=== PATIENT | female | born 1940 | race Caucasian/White ===

== ENCOUNTER 2018-07-28 09:57 | Outpatient (RCR) | payer MEDICARE, MEDICAID, SELFPAY ==
[2018-07-28 10:08] VITALS: BP 127/68; PULSE 107; RESP 16; TEMP 36; BMI 26.5
--- NOTE | 2018-07-28 11:47 | WC ---
PT RELUCTANT TO SIGN CONSENTS. DX W/ DEMENTIA. CALLED [facility] AND RECEIVED VERBAL CONSENT FOR TREATMENT. DR DIMAS, FINANCIAL COMPLIANCE OFFICER, AND PT ALL AWARE, WELL CAREGIVER WHO ACCOMPANIED.
--- NOTE | 2018-07-28 13:32 | PCM.WC.HP ---
(1) Sacral decubitus ulcer, stage III Status: Chronic Current Visit: Yes Code(s): L89.153 - Pressure ulcer of sacral region, stage 3 (2) Ulcer of left lower extremity with fat layer exposed Status: Chronic Current Visit: Yes Code(s): L97.922 - Non-pressure chronic ulcer of unspecified part of left lower leg with fat layer exposed Comment: Left lateral and posterior with significant eschar. (3) Ulcer of right lower extremity with fat layer exposed Status: Chronic Current Visit: Yes Code(s): L97.912 - Non-pressure chronic ulcer of unspecified part of right lower leg with fat layer exposed (4) Dementia Status: Acute Current Visit: Yes Code(s): F03.90 - Unspecified dementia without behavioral disturbance (5) Chronic anticoagulation Status: Acute Current Visit: Yes Code(s): Z79.01 - [facility] (current) use of anticoagulants History of Present Illness Date of Service: 07/28/18 Chief Complaint: Multiple lower extremity and sacral ulcers. History of Wound: Ms. Yao is a 78-year-old unable to give a clear history due to her coexistent dementia who was [facility] in from [facility] due to multiple bilateral lower extremity ulcers and sacral decubitus ulcer. No known onset/precipitating factors known at this time. Per prison personnel they have been applying Santyl to the wounds without any significant improvement. He states that she is at a baseline. Currently in ciprofloxacin for urinary tract infection. They also denied chills or fever. Patient is a DNR CCA and is currently on palliative care. Past Medical History Past Medical History: Chronic Problems Sacral decubitus ulcer, stage III (Chronic) Ulcer of left lower extremity with fat layer exposed (Chronic) Left lateral and posterior with significant eschar. Ulcer of right lower extremity with fat layer exposed (Chronic) Allergies/Adverse Reactions: Allergies aspirin [ASA] Allergy (Verified 07/28/18 10:50) Unknown Penicillins [PCN] Allergy (Verified 07/28/18 10:50) Unknown Sulfa (Sulfonamide Antibiotics) Allergy (Verified 07/28/18 10:50) Unknown VITAMIN K Allergy (Uncoded 07/28/18 10:50) Unknown Home Medications: Ambulatory Orders Medication Instructions Recorded Acetaminophen [Tylenol] 650 mg PO Q4H PRN 07/28/18 Albuterol Sulfate 1.25 mg IH 4X/DAY PRN 07/28/18 Amino Acids/Protein Hydrolys 30 ml PO TID 07/28/18 [Prosource No Carb Liquid Pkt] Atorvastatin Calcium [Lipitor] 20 mg PO QHS 07/28/18 Bumetanide 1 mg PO BID 07/28/18 Ciprofloxacin [Cipro] 250 mg PO BID 07/28/18 Dexamethasone 1.5 mg PO DAILY 07/28/18 Digoxin [Digox] 125 mcg PO DAILY 07/28/18 Diltiazem CD [Cardizem CD] 180 mg PO DAILY 07/28/18 Donepezil HCl [Aricept] 5 mg PO QHS 07/28/18 Gabapentin [Neurontin] 300 mg PO TID 07/28/18 Guaifenesin [Robitussin] 10 ml PO Q6H PRN PRN 07/28/18 Insulin Glargine,Hum.rec.anlog 15 unit SQ QHS 07/28/18 [Lantus] Insulin Lispro [Humalog] See Protocol SQ TID 07/28/18 Lactulose 10 gm PO BID 07/28/18 Magnesium Hydroxide [Milk Of 30 ml PO DAILY PRN PRN 07/28/18 Magnesia] Menthol [Biofreeze] 1 applic TP Q12H PRN 07/28/18 Omeprazole 40 mg PO DAILY 07/28/18 Polyethylene Glycol 3350 [Miralax] 17 gm PO DAILY 07/28/18 Potassium Chloride [Klor-Con M20] 40 meq PO BID 07/28/18 Propylene Glycol/Peg 400 [Systane 10 ml OP BID 07/28/18 Gel Eye Drops] Warfarin [Coumadin ([facility])] 3 mg PO DAILY 07/28/18 traMADol [Ultram (G)] 50 mg PO Q6H PRN PRN 07/28/18 Smoking Status: Never smoker Review of Systems Constitutional: Denies: Anorexia, Malaise Eyes: Denies: Pain HEENT: Denies: Difficulty Swallowing Cardiovascular: Denies: Chest Pain, Chest Tightness Respiratory: Reports: Cough. Denies: Hemoptysis Gastrointestinal: Denies: Abdominal Pain, Hematemesis, Vomiting Skin: Denies: Jaundice - Physical Exam Vital Signs Temp Pulse Resp BP 96.8 F L 107 H 16 127/68 H 07/28/18 10:08 07/28/18 10:08 07/28/18 10:08 07/28/18 10:08 General: Alert, Cooperative, No apparent distress HEENT: Atraumatic Oral: Moist Mucosa Neck: Supple Lungs: Wheezes Cardiovascular: Regular rate Abdomen: Non Tender, Obese Extremities: No cyanosis, Edema Skin: Ulcer/ Wound Wound Measurements and Assessment WC - Nurse 1 - General Ulcer Measurement Start: 07/28/18 10:07 Freq: Status: Active Protocol: Activity Type Activity Date Activity User E-Sign Co-Sign Detail Recorded Client Recorded Date Recorded By Document 07/28/18 10:08 [facility] [id number] 07/28/18 10:36 [facility] 07/28/18 10:08 Wound Center Nurse 1 [Ulcer Assessment] #4- SACRUM -Combined with other wound No -Current Size (cm) - Length 2.5 -Current Size (cm) - Width 2.4 -Current Size (cm) - Depth 0.3 -Total Square Cm 6.00 -Date of Last Picture (Recall this 07/28/18 field) -Photo Taken Yes -Epithelialization None Present -Tunneling No -Undermining/Tunneling No -Circular Undermining No -Exudate Amt Medium (34-66%) -Exudate Type Serosanguineous -Wound Margin Distinct, Outline Attached -Granulation Amt Medium (34-66%) -Granulation Quality Red -Slough/Fibrin Yes -Necrosis Amt Medium (34-66%) -Necrotic Tissue Type Adherent Slough -Structure Exposed N/A -Texture (Paris-wound Skin Appearance) Scarring -Moisture ([place]-wound Skin Appearance Assessed ) -Color ([place]-wound Skin Appearance) Erythema -Temperature ([place]-wound Skin No Abnormality Appearance) (Pt Warm) -Tenderness on Palpation ([place]-wound No Skin Appearance) -Ulcer Cleansing Wound Cleanser -Foul Odor after Cleansing No -Anesthetic Used 4% Lidocaine Solution #3- RT POST LE CLUSTER -Combined with other wound No -Current Size (cm) - Length 8.1 -Current Size (cm) - Width 3.9 -Current Size (cm) - Depth 0.2 -Total Square Cm 31.59 -Date of Last Picture (Recall this 07/28/18 field) -Photo Taken Yes -Epithelialization None Present -Tunneling No -Undermining/Tunneling No -Circular Undermining No -Exudate Amt Medium (34-66%) -Exudate Type Serosanguineous -Wound Margin Distinct, Outline Attached -Granulation Amt Small (1-33%) -Granulation Quality Red -Slough/Fibrin Yes -Necrosis Amt Large (67-100%) -Necrotic Tissue Type Eschar -Structure Exposed N/A -Texture ([place]-wound Skin Appearance) Scarring -Moisture ([place]-wound Skin Appearance Dry/Scaly ) -Color ([place]-wound Skin Appearance) Erythema -Temperature ([place]-wound Skin No Abnormality Appearance) (Pt Warm) -Tenderness on Palpation ([place]-wound Yes Skin Appearance) -Ulcer Cleansing Wound Cleanser -Foul Odor after Cleansing No -Anesthetic Used 5% Lidocaine Gel #2- LT POST LE -Combined with other wound No -Current Size (cm) - Length 8.9 -Current Size (cm) - Width 3.8 -Current Size (cm) - Depth 0.1 -Total Square Cm 33.82 -Date of Last Picture (Recall this 07/28/18 field) -Photo Taken Yes -Epithelialization None Present -Tunneling No -Undermining/Tunneling No -Circular Undermining No -Exudate Amt Medium (34-66%) -Exudate Type Serosanguineous -Wound Margin Distinct, Outline Attached -Granulation Amt Small (1-33%) -Granulation Quality Red -Slough/Fibrin Yes -Necrosis Amt Large (67-100%) -Necrotic Tissue Type Eschar -Structure Exposed N/A -Texture ([place]-wound Skin Appearance) Scarring -Moisture ([place]-wound Skin Appearance Dry/Scaly ) -Color ([place]-wound Skin Appearance) Erythema -Temperature ([place]-wound Skin No Abnormality Appearance) (Pt Warm) -Tenderness on Palpation ([place]-wound Yes Skin Appearance) -Ulcer Cleansing Wound Cleanser -Foul Odor after Cleansing No -Anesthetic Used 5% Lidocaine Gel #1- LT LAT LE -Combined with other wound No -Current Size (cm) - Length 4.2 -Current Size (cm) - Width 1.8 -Current Size (cm) - Depth 0.1 -Total Square Cm 7.56 -Date of Last Picture (Recall this 07/28/18 field) -Photo Taken Yes -Epithelialization None Present -Tunneling No -Undermining/Tunneling No -Circular Undermining No -Exudate Amt Medium (34-66%) -Exudate Type Serous -Wound Margin Distinct, Outline Attached -Granulation Amt Large (67-100%) -Granulation Quality Red -Slough/Fibrin Yes -Necrosis Amt Small (1-33%) -Necrotic Tissue Type Adherent Slough -Structure Exposed None/Limited to Skin Breakdown -Texture ([place]-wound Skin Appearance) Scarring -Moisture ([place]-wound Skin Appearance Dry/Scaly ) -Color ([place]-wound Skin Appearance) Erythema -Temperature ([place]-wound Skin No Abnormality Appearance) (Pt Warm) -Tenderness on Palpation ([place]-wound Yes Skin Appearance) -Ulcer Cleansing Wound Cleanser -Foul Odor after Cleansing No -Anesthetic Used 5% Lidocaine Gel [Edema Assessment] -Lower Limb Edema Present Yes -Right Calf (cm) 42 -Right Ankle (cm) 29 -Left Calf (cm) 43 -Left Ankle (cm) 30 WC - Nurse 2 - General Ulcer CM Notes Start: 07/28/18 10:07 Freq: Status: Active Protocol: Activity Type Activity Date Activity User E-Sign Co-Sign Detail Recorded Client Recorded Date Recorded By Document 07/28/18 11:05 MW [id number] 07/28/18 11:35 MW 07/28/18 11:05 Wound Center Nurse 2 [Procedure/Treatment] #4- SACRUM -Time 11:20 -Correct Patient Yes -Correct Side, Site, Position Yes -Correct Procedure Yes -Procedure Performed Yes -Type of Procedure Debridement -Clinical Debridement Subcutaneous -Post Debridement Size (cm) - Length 2.6 -Post Debridement Size (cm) - Width 4.0 -Post Debridement Size (cm) - Depth 0.3 -Total Square Cm 10.40 -Wound/Ulcer Outcome Not Healed -Ulcer Cleansing Rinsed/ Irrigated with Saline -Foul Odor after Cleansing No -Bioengineered Tissue No -Bleeding Controlled with Pressure -Treatment Response Procedure Tolerated Well #3- RT POST LE CLUSTER -Time 11:07 -Correct Patient Yes -Correct Side, Site, Position Yes -Correct Procedure Yes -Procedure Performed Yes -Type of Procedure Debridement -Clinical Debridement Subcutaneous -Post Debridement Size (cm) - Length 8.0 -Post Debridement Size (cm) - Width 5.0 -Post Debridement Size (cm) - Depth 0.3 -Total Square Cm 40.00 -Wound/Ulcer Outcome Not Healed -Ulcer Cleansing Rinsed/ Irrigated with Saline -Foul Odor after Cleansing No -Bioengineered Tissue No -Bleeding Controlled with Pressure -Treatment Response Procedure Tolerated Well #2- LT POST LE -Time 11:06 -Correct Patient Yes -Correct Side, Site, Position Yes -Correct Procedure Yes -Procedure Performed Yes -Type of Procedure Debridement -Clinical Debridement Subcutaneous -Post Debridement Size (cm) - Length 9.0 -Post Debridement Size (cm) - Width 4.0 -Post Debridement Size (cm) - Depth 0.6 -Total Square Cm 36.00 -Wound/Ulcer Outcome Not Healed -Ulcer Cleansing Rinsed/ Irrigated with Saline -Foul Odor after Cleansing No -Bioengineered Tissue No -Bleeding Controlled with Pressure -Treatment Response Procedure Tolerated Well #1- LT LAT LE -Time 11:06 -Correct Patient Yes -Correct Side, Site, Position Yes -Correct Procedure Yes -Procedure Performed Yes -Type of Procedure Debridement -Clinical Debridement Subcutaneous -Post Debridement Size (cm) - Length 4.0 -Post Debridement Size (cm) - Width 2.5 -Post Debridement Size (cm) - Depth 0.1 -Total Square Cm 10.00 -Wound/Ulcer Outcome Not Healed -Ulcer Cleansing Rinsed/ Irrigated with Saline -Foul Odor after Cleansing No -Bioengineered Tissue No -Bleeding Controlled with Pressure -Treatment Response Procedure Tolerated Well [See Physician Procedure note for Specifics] Pain Scale: 0-10 Numeric [Pain] -Is Patient Pain Free? Yes Musculoskeletal: No Muscle Wasting Psych/Mental Status: Normal Affect Debridement Note Post-Debridement Measurements/Treatment WC - Nurse 2 - General Ulcer CM Notes Start: 07/28/18 10:07 Freq: Status: Active Protocol: Activity Type Activity Date Activity User E-Sign Co-Sign Detail Recorded Client Recorded Date Recorded By Document 07/28/18 11:05 MW [id number] 07/28/18 11:35 MW 07/28/18 11:05 Wound Center Nurse 2 #4- SACRUM -Time 11:20 -Correct Patient Yes -Correct Side, Site, Position Yes -Correct Procedure Yes -Procedure Performed Yes -Type of Procedure Debridement -Clinical Debridement Subcutaneous -Post Debridement Size (cm) - Length 2.6 -Post Debridement Size (cm) - Width 4.0 -Post Debridement Size (cm) - Depth 0.3 -Total Square Cm 10.40 -Wound/Ulcer Outcome Not Healed -Ulcer Cleansing Rinsed/ Irrigated with Saline -Foul Odor after Cleansing No -Bioengineered Tissue No -Bleeding Controlled with Pressure -Treatment Response Procedure Tolerated Well #3- RT POST LE CLUSTER -Time 11:07 -Correct Patient Yes -Correct Side, Site, Position Yes -Correct Procedure Yes -Procedure Performed Yes -Type of Procedure Debridement -Clinical Debridement Subcutaneous -Post Debridement Size (cm) - Length 8.0 -Post Debridement Size (cm) - Width 5.0 -Post Debridement Size (cm) - Depth 0.3 -Total Square Cm 40.00 -Wound/Ulcer Outcome Not Healed -Ulcer Cleansing Rinsed/ Irrigated with Saline -Foul Odor after Cleansing No -Bioengineered Tissue No -Bleeding Controlled with Pressure -Treatment Response Procedure Tolerated Well #2- LT POST LE -Time 11:06 -Correct Patient Yes -Correct Side, Site, Position Yes -Correct Procedure Yes -Procedure Performed Yes -Type of Procedure Debridement -Clinical Debridement Subcutaneous -Post Debridement Size (cm) - Length 9.0 -Post Debridement Size (cm) - Width 4.0 -Post Debridement Size (cm) - Depth 0.6 -Total Square Cm 36.00 -Wound/Ulcer Outcome Not Healed -Ulcer Cleansing Rinsed/ Irrigated with Saline -Foul Odor after Cleansing No -Bioengineered Tissue No -Bleeding Controlled with Pressure -Treatment Response Procedure Tolerated Well #1- LT LAT LE -Time 11:06 -Correct Patient Yes -Correct Side, Site, Position Yes -Correct Procedure Yes -Procedure Performed Yes -Type of Procedure Debridement -Clinical Debridement Subcutaneous -Post Debridement Size (cm) - Length 4.0 -Post Debridement Size (cm) - Width 2.5 -Post Debridement Size (cm) - Depth 0.1 -Total Square Cm 10.00 -Wound/Ulcer Outcome Not Healed -Ulcer Cleansing Rinsed/ Irrigated with Saline -Foul Odor after Cleansing No -Bioengineered Tissue No -Bleeding Controlled with Pressure -Treatment Response Procedure Tolerated Well Pain Scale: 0-10 Numeric Is Patient Pain Free? Yes Wound debrided: Left lateral lower extremity. Wound Grade/Stage: Stage II Type of Debridement: Excisional debridement Anesthesia Used: 4% Lidocaine Solution Depth: Down to and including healthy tissue, in the subcutaneous layer Percentage of wound debrided: 100 Instrument Used: 7mm curette Tissue Removed: Slough and devitalized tissue Severity: Fat Layer Exposed Amount of bleeding with debridement: Mild Bleeding Controlled with: Pressure Patient tolerated procedure well - Additional Wound Wound debrided: Posterior left lower extremity Wound Grade/Stage: Stage III Type of Debridement: Excisional debridement Anesthesia Used: 4% Lidocaine Solution, 5% Lidocaine Gel Depth: Down to and including healthy tissue, in the subcutaneous layer Percentage of wound debrided: 100 Instrument Used: 7mm curette, #15 blade, Forceps Tissue Removed: Eschar, slough and devitalized tissue Severity: Fat Layer Exposed Amount of bleeding with debridement: Mild Bleeding Controlled with: Pressure Patient tolerated procedure: Patient tolerated procedure well - Additional Wound Wound debrided: Sacral ulcer Wound Grade/Stage: Stage III Type of Debridement: Excisional debridement Anesthesia Used: 4% Lidocaine Solution Depth: Down to and including healthy tissue, in the subcutaneous layer Percentage of wound debrided: 100 Instrument Used: 3mm curette Tissue Removed: Slough and devitalized tissue Severity: Fat Layer Exposed Amount of bleeding with debridement: Mild Bleeding Controlled with: Pressure Patient tolerated procedure: Patient tolerated procedure well - Additional Wound Wound debrided: Right lower extremity ulcer Wound Grade/Stage: Stage III Type of Debridement: Excisional debridement Anesthesia Used: 4% Lidocaine Solution Depth: Down to and including healthy tissue, in the subcutaneous layer Percentage of wound debrided: 100 Instrument Used: 7mm curette, #15 blade, Forceps Tissue Removed: Eschar, slough and devitalized tissue Severity: Fat Layer Exposed Amount of bleeding with debridement: Mild Bleeding Controlled with: Pressure Patient tolerated procedure: Patient tolerated procedure well Assessment/Plan Active Problems Sacral decubitus ulcer, stage III (Chronic) Ulcer of left lower extremity with fat layer exposed (Chronic) Left lateral and posterior with significant eschar. Ulcer of right lower extremity with fat layer exposed (Chronic) Dementia (Acute) Chronic anticoagulation (Acute) Assessment: Nonhealing bilateral lower extremity ulcers with slightly exposed and significant eschar formation. Nonhealing sacral stage III decubitus ulcer. Dementia. Bilateral lower extremity edema. DNR CCA. Palliative care. Plan: Patient presents with significant bilateral lower extremity ulcers. Both ulcers with significant eschar formation and purulent discharge noted on debridement. Cultures taken. Due to her palliative care status, wound care will also be palliative. Apply Santyl to posterior left lower extremity and right lower extremity ulcers. Fibracol with Adaptic over top to lateral left lower extremity ulcer and sacral decubitus ulcer. SurePress for edema management. Elevate lower extremities when seated in bed. Increased protein intake and supplements recommended. All her questions were answered and she was advised to call with any further questions or concerns. Follow-up in 3 weeks. This note was generated with [employer] software. It may contain incorrect words, spelling, and punctuation that were not noted in checking the note before signing.
--- NOTE | 2018-07-28 13:36 | HP.PCM_ITS ---
(1) Sacral decubitus ulcer, stage III Status: Chronic Current Visit: Yes Code(s): L89.153 - Pressure ulcer of sacral region, stage 3 (2) Ulcer of left lower extremity with fat layer exposed Status: Chronic Current Visit: Yes Code(s): L97.922 - Non-pressure chronic ulcer of unspecified part of left lower leg with fat layer exposed Comment: Left lateral and posterior with significant eschar. (3) Ulcer of right lower extremity with fat layer exposed Status: Chronic Current Visit: Yes Code(s): L97.912 - Non-pressure chronic ulcer of unspecified part of right lower leg with fat layer exposed (4) Dementia Status: Acute Current Visit: Yes Code(s): F03.90 - Unspecified dementia without behavioral disturbance (5) Chronic anticoagulation Status: Acute Current Visit: Yes Code(s): Z79.01 - [facility] (current) use of anticoagulants History of Present Illness Date of Service: 07/28/18 Chief Complaint: Multiple lower extremity and sacral ulcers. History of Wound: Ms. Yao is a 78-year-old unable to give a clear history due to her coexistent dementia who was brought in from her half-way due to multiple bilateral lower extremity ulcers and sacral decubitus ulcer. No known onset/precipitating factors known at this time. Per half-way personnel they have been applying Santyl to the wounds without any significant improvement. He states that she is at a baseline. Currently in ciprofloxacin for urinary tract infection. They also denied chills or fever. Patient is a DNR CCA and is currently on palliative care. Past Medical History Past Medical History: Chronic Problems Sacral decubitus ulcer, stage III (Chronic) Ulcer of left lower extremity with fat layer exposed (Chronic) Left lateral and posterior with significant eschar. Ulcer of right lower extremity with fat layer exposed (Chronic) Allergies/Adverse Reactions: Allergies aspirin [ASA] Allergy (Verified 07/28/18 10:50) Unknown Penicillins [PCN] Allergy (Verified 07/28/18 10:50) Unknown Sulfa (Sulfonamide Antibiotics) Allergy (Verified 07/28/18 10:50) Unknown VITAMIN K Allergy (Uncoded 07/28/18 10:50) Unknown Home Medications: Ambulatory Orders Medication Instructions Recorded Acetaminophen [Tylenol] 650 mg PO Q4H PRN 07/28/18 Albuterol Sulfate 1.25 mg IH 4X/DAY PRN 07/28/18 Amino Acids/Protein Hydrolys 30 ml PO TID 07/28/18 [Prosource No Carb Liquid Pkt] Atorvastatin Calcium [Lipitor] 20 mg PO QHS 07/28/18 Bumetanide 1 mg PO BID 07/28/18 Ciprofloxacin [Cipro] 250 mg PO BID 07/28/18 Dexamethasone 1.5 mg PO DAILY 07/28/18 Digoxin [Digox] 125 mcg PO DAILY 07/28/18 Diltiazem CD [Cardizem CD] 180 mg PO DAILY 07/28/18 Donepezil HCl [Aricept] 5 mg PO QHS 07/28/18 Gabapentin [Neurontin] 300 mg PO TID 07/28/18 Guaifenesin [Robitussin] 10 ml PO Q6H PRN PRN 07/28/18 Insulin Glargine,Hum.rec.anlog 15 unit SQ QHS 07/28/18 [Lantus] Insulin Lispro [Humalog] See Protocol SQ TID 07/28/18 Lactulose 10 gm PO BID 07/28/18 Magnesium Hydroxide [Milk Of 30 ml PO DAILY PRN PRN 07/28/18 Magnesia] Menthol [Biofreeze] 1 applic TP Q12H PRN 07/28/18 Omeprazole 40 mg PO DAILY 07/28/18 Polyethylene Glycol 3350 [Miralax] 17 gm PO DAILY 07/28/18 Potassium Chloride [Klor-Con M20] 40 meq PO BID 07/28/18 Propylene Glycol/Peg 400 [Systane 10 ml OP BID 07/28/18 Gel Eye Drops] Warfarin [Coumadin ([facility])] 3 mg PO DAILY 07/28/18 traMADol [Ultram (G)] 50 mg PO Q6H PRN PRN 07/28/18 Smoking Status: Never smoker Review of Systems Constitutional: Denies: Anorexia, Malaise Eyes: Denies: Pain HEENT: Denies: Difficulty Swallowing Cardiovascular: Denies: Chest Pain, Chest Tightness Respiratory: Reports: Cough. Denies: Hemoptysis Gastrointestinal: Denies: Abdominal Pain, Hematemesis, Vomiting Skin: Denies: Jaundice - Physical Exam Vital Signs Temp Pulse Resp BP 96.8 F L 107 H 16 127/68 H 07/28/18 10:08 07/28/18 10:08 07/28/18 10:08 07/28/18 10:08 General: Alert, Cooperative, No apparent distress HEENT: Atraumatic Oral: Moist Mucosa Neck: Supple Lungs: Wheezes Cardiovascular: Regular rate Abdomen: Non Tender, Obese Extremities: No cyanosis, Edema Skin: Ulcer/ Wound Wound Measurements and Assessment WC - Nurse 1 - General Ulcer Measurement Start: 07/28/18 10:07 Freq: Status: Active Protocol: Activity Type Activity Date Activity User E-Sign Co-Sign Detail Recorded Client Recorded Date Recorded By Document 07/28/18 10:08 [facility] [id number] 07/28/18 10:36 [facility] 07/28/18 10:08 Wound Center Nurse 1 [Ulcer Assessment] #4- SACRUM -Combined with other wound No -Current Size (cm) - Length 2.5 -Current Size (cm) - Width 2.4 -Current Size (cm) - Depth 0.3 -Total Square Cm 6.00 -Date of Last Picture (Recall this 07/28/18 field) -Photo Taken Yes -Epithelialization None Present -Tunneling No -Undermining/Tunneling No -Circular Undermining No -Exudate Amt Medium (34-66%) -Exudate Type Serosanguineous -Wound Margin Distinct, Outline Attached -Granulation Amt Medium (34-66%) -Granulation Quality Red -Slough/Fibrin Yes -Necrosis Amt Medium (34-66%) -Necrotic Tissue Type Adherent Slough -Structure Exposed N/A -Texture (Paris-wound Skin Appearance) Scarring -Moisture (Pairs-wound Skin Appearance Assessed ) -Color ([place]-wound Skin Appearance) Erythema -Temperature ([place]-wound Skin No Abnormality Appearance) (Pt Warm) -Tenderness on Palpation ([place]-wound No Skin Appearance) -Ulcer Cleansing Wound Cleanser -Foul Odor after Cleansing No -Anesthetic Used 4% Lidocaine Solution #3- RT POST LE CLUSTER -Combined with other wound No -Current Size (cm) - Length 8.1 -Current Size (cm) - Width 3.9 -Current Size (cm) - Depth 0.2 -Total Square Cm 31.59 -Date of Last Picture (Recall this 07/28/18 field) -Photo Taken Yes -Epithelialization None Present -Tunneling No -Undermining/Tunneling No -Circular Undermining No -Exudate Amt Medium (34-66%) -Exudate Type Serosanguineous -Wound Margin Distinct, Outline Attached -Granulation Amt Small (1-33%) -Granulation Quality Red -Slough/Fibrin Yes -Necrosis Amt Large (67-100%) -Necrotic Tissue Type Eschar -Structure Exposed N/A -Texture ([place]-wound Skin Appearance) Scarring -Moisture ([place]-wound Skin Appearance Dry/Scaly ) -Color ([place]-wound Skin Appearance) Erythema -Temperature ([place]-wound Skin No Abnormality Appearance) (Pt Warm) -Tenderness on Palpation ([place]-wound Yes Skin Appearance) -Ulcer Cleansing Wound Cleanser -Foul Odor after Cleansing No -Anesthetic Used 5% Lidocaine Gel #2- LT POST LE -Combined with other wound No -Current Size (cm) - Length 8.9 -Current Size (cm) - Width 3.8 -Current Size (cm) - Depth 0.1 -Total Square Cm 33.82 -Date of Last Picture (Recall this 07/28/18 field) -Photo Taken Yes -Epithelialization None Present -Tunneling No -Undermining/Tunneling No -Circular Undermining No -Exudate Amt Medium (34-66%) -Exudate Type Serosanguineous -Wound Margin Distinct, Outline Attached -Granulation Amt Small (1-33%) -Granulation Quality Red -Slough/Fibrin Yes -Necrosis Amt Large (67-100%) -Necrotic Tissue Type Eschar -Structure Exposed N/A -Texture ([place]-wound Skin Appearance) Scarring -Moisture ([place]-wound Skin Appearance Dry/Scaly ) -Color ([place]-wound Skin Appearance) Erythema -Temperature ([place]-wound Skin No Abnormality Appearance) (Pt Warm) -Tenderness on Palpation ([place]-wound Yes Skin Appearance) -Ulcer Cleansing Wound Cleanser -Foul Odor after Cleansing No -Anesthetic Used 5% Lidocaine Gel #1- LT LAT LE -Combined with other wound No -Current Size (cm) - Length 4.2 -Current Size (cm) - Width 1.8 -Current Size (cm) - Depth 0.1 -Total Square Cm 7.56 -Date of Last Picture (Recall this 07/28/18 field) -Photo Taken Yes -Epithelialization None Present -Tunneling No -Undermining/Tunneling No -Circular Undermining No -Exudate Amt Medium (34-66%) -Exudate Type Serous -Wound Margin Distinct, Outline Attached -Granulation Amt Large (67-100%) -Granulation Quality Red -Slough/Fibrin Yes -Necrosis Amt Small (1-33%) -Necrotic Tissue Type Adherent Slough -Structure Exposed None/Limited to Skin Breakdown -Texture ([place]-wound Skin Appearance) Scarring -Moisture ([place]-wound Skin Appearance Dry/Scaly ) -Color ([place]-wound Skin Appearance) Erythema -Temperature ([place]-wound Skin No Abnormality Appearance) (Pt Warm) -Tenderness on Palpation ([place]-wound Yes Skin Appearance) -Ulcer Cleansing Wound Cleanser -Foul Odor after Cleansing No -Anesthetic Used 5% Lidocaine Gel [Edema Assessment] -Lower Limb Edema Present Yes -Right Calf (cm) 42 -Right Ankle (cm) 29 -Left Calf (cm) 43 -Left Ankle (cm) 30 WC - Nurse 2 - General Ulcer CM Notes Start: 07/28/18 10:07 Freq: Status: Active Protocol: Activity Type Activity Date Activity User E-Sign Co-Sign Detail Recorded Client Recorded Date Recorded By Document 07/28/18 11:05 MW [id number] 07/28/18 11:35 MW 07/28/18 11:05 Wound Center Nurse 2 [Procedure/Treatment] #4- SACRUM -Time 11:20 -Correct Patient Yes -Correct Side, Site, Position Yes -Correct Procedure Yes -Procedure Performed Yes -Type of Procedure Debridement -Clinical Debridement Subcutaneous -Post Debridement Size (cm) - Length 2.6 -Post Debridement Size (cm) - Width 4.0 -Post Debridement Size (cm) - Depth 0.3 -Total Square Cm 10.40 -Wound/Ulcer Outcome Not Healed -Ulcer Cleansing Rinsed/ Irrigated with Saline -Foul Odor after Cleansing No -Bioengineered Tissue No -Bleeding Controlled with Pressure -Treatment Response Procedure Tolerated Well #3- RT POST LE CLUSTER -Time 11:07 -Correct Patient Yes -Correct Side, Site, Position Yes -Correct Procedure Yes -Procedure Performed Yes -Type of Procedure Debridement -Clinical Debridement Subcutaneous -Post Debridement Size (cm) - Length 8.0 -Post Debridement Size (cm) - Width 5.0 -Post Debridement Size (cm) - Depth 0.3 -Total Square Cm 40.00 -Wound/Ulcer Outcome Not Healed -Ulcer Cleansing Rinsed/ Irrigated with Saline -Foul Odor after Cleansing No -Bioengineered Tissue No -Bleeding Controlled with Pressure -Treatment Response Procedure Tolerated Well #2- LT POST LE -Time 11:06 -Correct Patient Yes -Correct Side, Site, Position Yes -Correct Procedure Yes -Procedure Performed Yes -Type of Procedure Debridement -Clinical Debridement Subcutaneous -Post Debridement Size (cm) - Length 9.0 -Post Debridement Size (cm) - Width 4.0 -Post Debridement Size (cm) - Depth 0.6 -Total Square Cm 36.00 -Wound/Ulcer Outcome Not Healed -Ulcer Cleansing Rinsed/ Irrigated with Saline -Foul Odor after Cleansing No -Bioengineered Tissue No -Bleeding Controlled with Pressure -Treatment Response Procedure Tolerated Well #1- LT LAT LE -Time 11:06 -Correct Patient Yes -Correct Side, Site, Position Yes -Correct Procedure Yes -Procedure Performed Yes -Type of Procedure Debridement -Clinical Debridement Subcutaneous -Post Debridement Size (cm) - Length 4.0 -Post Debridement Size (cm) - Width 2.5 -Post Debridement Size (cm) - Depth 0.1 -Total Square Cm 10.00 -Wound/Ulcer Outcome Not Healed -Ulcer Cleansing Rinsed/ Irrigated with Saline -Foul Odor after Cleansing No -Bioengineered Tissue No -Bleeding Controlled with Pressure -Treatment Response Procedure Tolerated Well [See Physician Procedure note for Specifics] Pain Scale: 0-10 Numeric [Pain] -Is Patient Pain Free? Yes Musculoskeletal: No Muscle Wasting Psych/Mental Status: Normal Affect Debridement Note Post-Debridement Measurements/Treatment WC - Nurse 2 - General Ulcer CM Notes Start: 07/28/18 10:07 Freq: Status: Active Protocol: Activity Type Activity Date Activity User E-Sign Co-Sign Detail Recorded Client Recorded Date Recorded By Document 07/28/18 11:05 MW [id number] 07/28/18 11:35 MW 07/28/18 11:05 Wound Center Nurse 2 #4- SACRUM -Time 11:20 -Correct Patient Yes -Correct Side, Site, Position Yes -Correct Procedure Yes -Procedure Performed Yes -Type of Procedure Debridement -Clinical Debridement Subcutaneous -Post Debridement Size (cm) - Length 2.6 -Post Debridement Size (cm) - Width 4.0 -Post Debridement Size (cm) - Depth 0.3 -Total Square Cm 10.40 -Wound/Ulcer Outcome Not Healed -Ulcer Cleansing Rinsed/ Irrigated with Saline -Foul Odor after Cleansing No -Bioengineered Tissue No -Bleeding Controlled with Pressure -Treatment Response Procedure Tolerated Well #3- RT POST LE CLUSTER -Time 11:07 -Correct Patient Yes -Correct Side, Site, Position Yes -Correct Procedure Yes -Procedure Performed Yes -Type of Procedure Debridement -Clinical Debridement Subcutaneous -Post Debridement Size (cm) - Length 8.0 -Post Debridement Size (cm) - Width 5.0 -Post Debridement Size (cm) - Depth 0.3 -Total Square Cm 40.00 -Wound/Ulcer Outcome Not Healed -Ulcer Cleansing Rinsed/ Irrigated with Saline -Foul Odor after Cleansing No -Bioengineered Tissue No -Bleeding Controlled with Pressure -Treatment Response Procedure Tolerated Well #2- LT POST LE -Time 11:06 -Correct Patient Yes -Correct Side, Site, Position Yes -Correct Procedure Yes -Procedure Performed Yes -Type of Procedure Debridement -Clinical Debridement Subcutaneous -Post Debridement Size (cm) - Length 9.0 -Post Debridement Size (cm) - Width 4.0 -Post Debridement Size (cm) - Depth 0.6 -Total Square Cm 36.00 -Wound/Ulcer Outcome Not Healed -Ulcer Cleansing Rinsed/ Irrigated with Saline -Foul Odor after Cleansing No -Bioengineered Tissue No -Bleeding Controlled with Pressure -Treatment Response Procedure Tolerated Well #1- LT LAT LE -Time 11:06 -Correct Patient Yes -Correct Side, Site, Position Yes -Correct Procedure Yes -Procedure Performed Yes -Type of Procedure Debridement -Clinical Debridement Subcutaneous -Post Debridement Size (cm) - Length 4.0 -Post Debridement Size (cm) - Width 2.5 -Post Debridement Size (cm) - Depth 0.1 -Total Square Cm 10.00 -Wound/Ulcer Outcome Not Healed -Ulcer Cleansing Rinsed/ Irrigated with Saline -Foul Odor after Cleansing No -Bioengineered Tissue No -Bleeding Controlled with Pressure -Treatment Response Procedure Tolerated Well Pain Scale: 0-10 Numeric Is Patient Pain Free? Yes Wound debrided: Left lateral lower extremity. Wound Grade/Stage: Stage II Type of Debridement: Excisional debridement Anesthesia Used: 4% Lidocaine Solution Depth: Down to and including healthy tissue, in the subcutaneous layer Percentage of wound debrided: 100 Instrument Used: 7mm curette Tissue Removed: Slough and devitalized tissue Severity: Fat Layer Exposed Amount of bleeding with debridement: Mild Bleeding Controlled with: Pressure Patient tolerated procedure well - Additional Wound Wound debrided: Posterior left lower extremity Wound Grade/Stage: Stage III Type of Debridement: Excisional debridement Anesthesia Used: 4% Lidocaine Solution, 5% Lidocaine Gel Depth: Down to and including healthy tissue, in the subcutaneous layer Percentage of wound debrided: 100 Instrument Used: 7mm curette, #15 blade, Forceps Tissue Removed: Eschar, slough and devitalized tissue Severity: Fat Layer Exposed Amount of bleeding with debridement: Mild Bleeding Controlled with: Pressure Patient tolerated procedure: Patient tolerated procedure well - Additional Wound Wound debrided: Sacral ulcer Wound Grade/Stage: Stage III Type of Debridement: Excisional debridement Anesthesia Used: 4% Lidocaine Solution Depth: Down to and including healthy tissue, in the subcutaneous layer Percentage of wound debrided: 100 Instrument Used: 3mm curette Tissue Removed: Slough and devitalized tissue Severity: Fat Layer Exposed Amount of bleeding with debridement: Mild Bleeding Controlled with: Pressure Patient tolerated procedure: Patient tolerated procedure well - Additional Wound Wound debrided: Right lower extremity ulcer Wound Grade/Stage: Stage III Type of Debridement: Excisional debridement Anesthesia Used: 4% Lidocaine Solution Depth: Down to and including healthy tissue, in the subcutaneous layer Percentage of wound debrided: 100 Instrument Used: 7mm curette, #15 blade, Forceps Tissue Removed: Eschar, slough and devitalized tissue Severity: Fat Layer Exposed Amount of bleeding with debridement: Mild Bleeding Controlled with: Pressure Patient tolerated procedure: Patient tolerated procedure well Assessment/Plan Active Problems Sacral decubitus ulcer, stage III (Chronic) Ulcer of left lower extremity with fat layer exposed (Chronic) Left lateral and posterior with significant eschar. Ulcer of right lower extremity with fat layer exposed (Chronic) Dementia (Acute) Chronic anticoagulation (Acute) Assessment: Nonhealing bilateral lower extremity ulcers with slightly exposed and significant eschar formation. Nonhealing sacral stage III decubitus ulcer. Dementia. Bilateral lower extremity edema. DNR CCA. Palliative care. Plan: Patient presents with significant bilateral lower extremity ulcers. Both ulcers with significant eschar formation and purulent discharge noted on debridement. Cultures taken. Due to her palliative care status, wound care will also be palliative. Apply Santyl to posterior left lower extremity and right lower extremity ulcers. Fibracol with Adaptic over top to lateral left lower extremity ulcer and sacral decubitus ulcer. SurePress for edema management. Elevate lower extremities when seated in bed. Increased protein intake and supplements recommended. All her questions were answered and she was advised to call with any further questions or concerns. Follow-up in 3 weeks. This note was generated with [employer] software. It may contain incorrect words, spelling, and punctuation that were not noted in checking the note before signing.
== END 2018-08-08 23:59 ==
LOC: WC 09:57
PROVIDERS: Visit Provider Internal Medicine
DX: L89.153 Pressure ulcer of sacral region, stage 3 (principal); F03.90 Unspecified dementia, unspecified severity, without behavioral disturbance, psychotic disturbance, mood disturbance, and anxiety; Z79.01 Long term (current) use of anticoagulants; L97.822 Non-pressure chronic ulcer of other part of left lower leg with fat layer exposed; L97.812 Non-pressure chronic ulcer of other part of right lower leg with fat layer exposed; R60.0 Localized edema
CPT/HCPCS: 11042; 11045; 87070; 87075; 87077; 87186; 87205; 99203; G0463

== ENCOUNTER 2018-08-18 11:01 | Outpatient (RCR) | payer MEDICARE, MEDICAID, SELFPAY ==
[2018-08-09 01:46] VITALS: BP 127/68; PULSE 107; RESP 16; TEMP 36
[2018-08-18 11:22] VITALS: BP 130/75; PULSE 106; RESP 18; TEMP 36
--- NOTE | 2018-08-18 16:38 | PN.PCM_ITS ---
(1) Skin ulcer of abdominal wall with fat layer exposed Status: Acute Current Visit: Yes Code(s): L98.492 - Non-pressure chronic ulcer of skin of other sites with fat layer exposed (2) Sacral decubitus ulcer, stage III Status: Chronic Current Visit: Yes Code(s): L89.153 - Pressure ulcer of sacral region, stage 3 (3) Ulcer of left lower extremity with fat layer exposed Status: Chronic Current Visit: Yes Code(s): L97.922 - Non-pressure chronic ulcer of unspecified part of left lower leg with fat layer exposed Comment: Left lateral and posterior with significant eschar. (4) Ulcer of right lower extremity with fat layer exposed Status: Chronic Current Visit: Yes Code(s): L97.912 - Non-pressure chronic ulcer of unspecified part of right lower leg with fat layer exposed Type of Wound Chief Complaint: Multiple lower extremity and sacral ulcers. History of Wound: Ms. Yao is a 78-year-old unable to give a clear history due to her coexistent dementia who [facility] due to multiple bilateral lower extremity ulcers and sacral decubitus ulcer. No known onset/precipitating factors known at this time. Per penitentiary personnel they have been applying Santyl to the wounds without any significant improvement. He states that she is at a baseline. Currently in ciprofloxacin for urinary tract infection. They also denied chills or fever. Patient is a DNR CCA and is currently on palliative care. Progress of Wound: Ms. Yao presents today for follow-up and is noted to have significant worsening of her ulcers and a new abdominal ulcer. She was started on IV ceftriaxone and has completed based on culture and sensitivity. She is here with her nursing facility staff and they report fecal incontinence which may explain the worsening sacral decubitus ulcer. They states that they have been applying Santyl to the lower extremity ulcers as directed. She otherwise is pretty much at her baseline. - Physical Exam Vital Signs Temp Pulse Resp BP 96.8 F L 106 H 18 130/75 H 08/18/18 11:22 08/18/18 11:22 08/18/18 11:22 08/18/18 11:22 General: Alert, Cooperative, No apparent distress HEENT: Atraumatic Neck: Supple Abdomen: Soft, Obese, Tender Extremities: No cyanosis, Edema Skin: Ulcer/ Wound Wound Measurements and Assessment WC - Nurse 1 - General Ulcer Measurement Start: 08/18/18 11:22 Freq: Status: Active Protocol: Activity Type Activity Date Activity User E-Sign Co-Sign Detail Recorded Client Recorded Date Recorded By Document 08/18/18 11:22 [id number] 08/18/18 11:26 08/18/18 11:22 Wound Center Nurse 1 [Ulcer Assessment] #4- SACRUM -Combined with other wound No -Current Size (cm) - Length 5.2 -Current Size (cm) - Width 4.5 -Current Size (cm) - Depth 0.2 -Total Square Cm 23.40 -Photo Taken No -Epithelialization None Present -Tunneling No -Undermining/Tunneling No -Circular Undermining No -Exudate Amt Large (67-100%) -Exudate Type Serosanguineous -Wound Margin Distinct, Outline Attached -Granulation Amt Small (1-33%) -Granulation Quality Red -Slough/Fibrin Yes -Necrosis Amt None Present (0 %) -Necrotic Tissue Type Adherent Slough -Structure Exposed None/Limited to Skin Breakdown -Texture ([place]-wound Skin Appearance) No Abnormality Assessed -Moisture ([place]-wound Skin Appearance No Abnormality ) Assessed -Color ([place]-wound Skin Appearance) No Abnormality Assessed -Temperature ([place]-wound Skin No Abnormality Appearance) (Pt Warm) -Tenderness on Palpation ([place]-wound Yes Skin Appearance) -Ulcer Cleansing Wound Cleanser -Foul Odor after Cleansing No -Anesthetic Used 5% Lidocaine Gel #3- RT POST LE CLUSTER -Combined with other wound No -Current Size (cm) - Length 10.9 -Current Size (cm) - Width 2.8 -Current Size (cm) - Depth 0.3 -Total Square Cm 30.52 -Photo Taken No -Epithelialization None Present -Tunneling No -Undermining/Tunneling No -Circular Undermining No -Exudate Amt Large (67-100%) -Exudate Type Yellow/Green -Wound Margin Distinct, Outline Attached -Slough/Fibrin Yes -Necrosis Amt None Present (0 %) -Necrotic Tissue Type Adherent Slough -Temperature ([place]-wound Skin No Abnormality Appearance) (Pt Warm) -Tenderness on Palpation ([place]-wound Yes Skin Appearance) -Ulcer Cleansing Rinsed/ Irrigated with Saline -Foul Odor after Cleansing No -Anesthetic Used 4% Lidocaine Solution #2- LT POST LE -Combined with other wound No -Current Size (cm) - Length 10.3 -Current Size (cm) - Width 3.8 -Current Size (cm) - Depth 0.2 -Total Square Cm 39.14 -Photo Taken No -Epithelialization None Present -Tunneling No -Undermining/Tunneling No -Circular Undermining No -Exudate Amt Large (67-100%) -Exudate Type Yellow/Green -Wound Margin Distinct, Outline Attached -Granulation Amt Small (1-33%) -Granulation Quality Pale -Necrosis Amt Small (1-33%) -Necrotic Tissue Type Eschar -Temperature ([place]-wound Skin No Abnormality Appearance) (Pt Warm) -Tenderness on Palpation ([place]-wound Yes Skin Appearance) -Ulcer Cleansing Rinsed/ Irrigated with Saline -Foul Odor after Cleansing No -Anesthetic Used 5% Lidocaine Gel #1- LT LAT LE -Combined with other wound No -Current Size (cm) - Length 3.3 -Current Size (cm) - Width 1.9 -Current Size (cm) - Depth 0.1 -Total Square Cm 6.27 -Photo Taken No -Epithelialization None Present -Tunneling No -Undermining/Tunneling No -Circular Undermining No -Exudate Amt Medium (34-66%) -Exudate Type Serosanguineous -Wound Margin Distinct, Outline Attached -Granulation Amt Medium (34-66%) -Granulation Quality [place] Red -Slough/Fibrin Yes -Necrosis Amt None Present (0 %) -Necrotic Tissue Type Adherent Slough -Temperature ([place]-wound Skin No Abnormality Appearance) (Pt Warm) -Tenderness on Palpation ([place]-wound Yes Skin Appearance) -Ulcer Cleansing Rinsed/ Irrigated with Saline -Foul Odor after Cleansing No -Anesthetic Used 5% Lidocaine Gel [Edema Assessment] -Lower Limb Edema Present NA WC - Nurse 2 - General Ulcer CM Notes Start: 08/18/18 11:22 Freq: Status: Active Protocol: Activity Type Activity Date Activity User E-Sign Co-Sign Detail Recorded Client Recorded Date Recorded By Document 08/18/18 11:43 MW [id number] 08/18/18 12:10 MW 08/18/18 11:43 Wound Center Nurse 2 [Procedure/Treatment] # 5 LEFT LOWER ABD -Time 12:00 -Correct Patient Yes -Correct Side, Site, Position Yes -Correct Procedure Yes -Procedure Performed Yes -Type of Procedure Debridement -Clinical Debridement Subcutaneous -Post Debridement Size (cm) - Length 0.7 -Post Debridement Size (cm) - Width 11.5 -Post Debridement Size (cm) - Depth 0.1 -Total Square Cm 8.05 -Wound/Ulcer Outcome Not Healed -Ulcer Cleansing Rinsed/ Irrigated with Saline -Foul Odor after Cleansing No -Bioengineered Tissue No -Bleeding Controlled with Pressure -Treatment Response Procedure Tolerated Well #4- SACRUM -Time 11:54 -Correct Patient Yes -Correct Side, Site, Position Yes -Correct Procedure Yes -Procedure Performed Yes -Type of Procedure Debridement -Clinical Debridement Subcutaneous -Post Debridement Size (cm) - Length 8.0 -Post Debridement Size (cm) - Width 4.0 -Post Debridement Size (cm) - Depth 0.7 -Total Square Cm 32.00 -Wound/Ulcer Outcome Not Healed -Ulcer Cleansing Rinsed/ Irrigated with Saline -Foul Odor after Cleansing No -Bioengineered Tissue No -Bleeding Controlled with Pressure -Treatment Response Procedure Tolerated Well #3- RT POST LE CLUSTER -Time 11:59 -Correct Patient Yes -Correct Side, Site, Position Yes -Correct Procedure Yes -Procedure Performed Yes -Type of Procedure Debridement -Clinical Debridement Subcutaneous -Post Debridement Size (cm) - Length 9.8 -Post Debridement Size (cm) - Width 3.5 -Post Debridement Size (cm) - Depth 0.3 -Total Square Cm 34.30 -Wound/Ulcer Outcome Not Healed -Ulcer Cleansing Rinsed/ Irrigated with Saline -Foul Odor after Cleansing No -Bioengineered Tissue No -Bleeding Controlled with Pressure -Treatment Response Procedure Tolerated Well #2- LT POST LE -Time 11:48 -Correct Patient Yes -Correct Side, Site, Position Yes -Correct Procedure Yes -Procedure Performed Yes -Type of Procedure Debridement -Clinical Debridement Subcutaneous -Post Debridement Size (cm) - Length 9.5 -Post Debridement Size (cm) - Width 4.5 -Post Debridement Size (cm) - Depth 0.5 -Total Square Cm 42.75 -Wound/Ulcer Outcome Not Healed -Ulcer Cleansing Rinsed/ Irrigated with Saline -Foul Odor after Cleansing No -Bioengineered Tissue No -Bleeding Controlled with Pressure -Treatment Response Procedure Tolerated Well #1- LT LAT LE -Time 11:47 -Correct Patient Yes -Correct Side, Site, Position Yes -Correct Procedure Yes -Procedure Performed Yes -Type of Procedure Debridement -Clinical Debridement Subcutaneous -Post Debridement Size (cm) - Length 5.5 -Post Debridement Size (cm) - Width 2.0 -Post Debridement Size (cm) - Depth 0.1 -Total Square Cm 11.00 -Wound/Ulcer Outcome Not Healed -Ulcer Cleansing Rinsed/ Irrigated with Saline -Foul Odor after Cleansing No -Bioengineered Tissue No -Bleeding Controlled with Pressure -Treatment Response Procedure Tolerated Well [See Physician Procedure note for Specifics] Pain Scale: 0-10 Numeric [Pain] -Is Patient Pain Free? Yes Musculoskeletal: No Muscle Wasting Neurological: Cranial nerves II-XII grossly intact Psych/Mental Status: Normal Affect Debridement Note Post-Debridement Measurements/Treatment WC - Nurse 2 - General Ulcer CM Notes Start: 08/18/18 11:22 Freq: Status: Active Protocol: Activity Type Activity Date Activity User E-Sign Co-Sign Detail Recorded Client Recorded Date Recorded By Document 08/18/18 11:43 MW [id number] 08/18/18 12:10 MW 08/18/18 11:43 Wound Center Nurse 2 # 5 LEFT LOWER ABD -Time 12:00 -Correct Patient Yes -Correct Side, Site, Position Yes -Correct Procedure Yes -Procedure Performed Yes -Type of Procedure Debridement -Clinical Debridement Subcutaneous -Post Debridement Size (cm) - Length 0.7 -Post Debridement Size (cm) - Width 11.5 -Post Debridement Size (cm) - Depth 0.1 -Total Square Cm 8.05 -Wound/Ulcer Outcome Not Healed -Ulcer Cleansing Rinsed/ Irrigated with Saline -Foul Odor after Cleansing No -Bioengineered Tissue No -Bleeding Controlled with Pressure -Treatment Response Procedure Tolerated Well #4- SACRUM -Time 11:54 -Correct Patient Yes -Correct Side, Site, Position Yes -Correct Procedure Yes -Procedure Performed Yes -Type of Procedure Debridement -Clinical Debridement Subcutaneous -Post Debridement Size (cm) - Length 8.0 -Post Debridement Size (cm) - Width 4.0 -Post Debridement Size (cm) - Depth 0.7 -Total Square Cm 32.00 -Wound/Ulcer Outcome Not Healed -Ulcer Cleansing Rinsed/ Irrigated with Saline -Foul Odor after Cleansing No -Bioengineered Tissue No -Bleeding Controlled with Pressure -Treatment Response Procedure Tolerated Well #3- RT POST LE CLUSTER -Time 11:59 -Correct Patient Yes -Correct Side, Site, Position Yes -Correct Procedure Yes -Procedure Performed Yes -Type of Procedure Debridement -Clinical Debridement Subcutaneous -Post Debridement Size (cm) - Length 9.8 -Post Debridement Size (cm) - Width 3.5 -Post Debridement Size (cm) - Depth 0.3 -Total Square Cm 34.30 -Wound/Ulcer Outcome Not Healed -Ulcer Cleansing Rinsed/ Irrigated with Saline -Foul Odor after Cleansing No -Bioengineered Tissue No -Bleeding Controlled with Pressure -Treatment Response Procedure Tolerated Well #2- LT POST LE -Time 11:48 -Correct Patient Yes -Correct Side, Site, Position Yes -Correct Procedure Yes -Procedure Performed Yes -Type of Procedure Debridement -Clinical Debridement Subcutaneous -Post Debridement Size (cm) - Length 9.5 -Post Debridement Size (cm) - Width 4.5 -Post Debridement Size (cm) - Depth 0.5 -Total Square Cm 42.75 -Wound/Ulcer Outcome Not Healed -Ulcer Cleansing Rinsed/ Irrigated with Saline -Foul Odor after Cleansing No -Bioengineered Tissue No -Bleeding Controlled with Pressure -Treatment Response Procedure Tolerated Well #1- LT LAT LE -Time 11:47 -Correct Patient Yes -Correct Side, Site, Position Yes -Correct Procedure Yes -Procedure Performed Yes -Type of Procedure Debridement -Clinical Debridement Subcutaneous -Post Debridement Size (cm) - Length 5.5 -Post Debridement Size (cm) - Width 2.0 -Post Debridement Size (cm) - Depth 0.1 -Total Square Cm 11.00 -Wound/Ulcer Outcome Not Healed -Ulcer Cleansing Rinsed/ Irrigated with Saline -Foul Odor after Cleansing No -Bioengineered Tissue No -Bleeding Controlled with Pressure -Treatment Response Procedure Tolerated Well Pain Scale: 0-10 Numeric Is Patient Pain Free? Yes Wound debrided: Left lower extremity posterior Wound Grade/Stage: Stage III Type of Debridement: Excisional debridement Anesthesia Used: 4% Lidocaine Solution Depth: Down to and including healthy tissue, in the subcutaneous layer Percentage of wound debrided: 100 Instrument Used: 7mm curette Tissue Removed: Slough, eschar and devitalized tissue Severity: Fat Layer Exposed Amount of bleeding with debridement: Mild Bleeding Controlled with: Pressure Patient tolerated procedure well - Additional Wound Wound debrided: Left lower extremity medial Wound Grade/Stage: Stage II Type of Debridement: Excisional debridement Anesthesia Used: 4% Lidocaine Solution Depth: Down to and including healthy tissue, in the subcutaneous layer Percentage of wound debrided: 100 Instrument Used: 7mm curette Tissue Removed: Slough and devitalized tissue Severity: Fat Layer Exposed Amount of bleeding with debridement: Mild Bleeding Controlled with: Pressure Patient tolerated procedure: Patient tolerated procedure well - Additional Wound Wound debrided: Sacral ulcer Wound Grade/Stage: Stage III Type of Debridement: Excisional debridement Anesthesia Used: 4% Lidocaine Solution Depth: Down to and including healthy tissue, in the subcutaneous layer Percentage of wound debrided: 100 Instrument Used: 7mm curette Tissue Removed: Slough and devitalized tissue Severity: Fat Layer Exposed Amount of bleeding with debridement: Mild Bleeding Controlled with: Pressure Patient tolerated procedure: Patient tolerated procedure well - Additional Wound Wound debrided: Right lower extremity Wound Grade/Stage: Stage III Type of Debridement: Excisional debridement Anesthesia Used: 4% Lidocaine Solution Depth: Down to and including healthy tissue, in the subcutaneous layer Percentage of wound debrided: 100 Instrument Used: 7mm curette Tissue Removed: Eschar, slough and devitalized tissue Severity: Fat Layer Exposed Amount of bleeding with debridement: Mild Bleeding Controlled with: Pressure Patient tolerated procedure: Patient tolerated procedure well - Additional Wound Wound debrided: Abdominal ulcer Wound Grade/Stage: Stage II Type of Debridement: Excisional debridement Anesthesia Used: 4% Lidocaine Solution Depth: Down to and including healthy tissue, in the subcutaneous layer Percentage of wound debrided: 100 Instrument Used: 7mm curette Tissue Removed: Slough and devitalized tissue Severity: Fat Layer Exposed Amount of bleeding with debridement: Mild Bleeding Controlled with: Pressure Patient tolerated procedure: Patient tolerated procedure well Assessment/Plan Active Problems Sacral decubitus ulcer, stage III (Chronic) Ulcer of left lower extremity with fat layer exposed (Chronic) Left lateral and posterior with significant eschar. Ulcer of right lower extremity with fat layer exposed (Chronic) Skin ulcer of abdominal wall with fat layer exposed (Acute) Assessment: Nonhealing bilateral lower extremity ulcers with slightly exposed and significant eschar formation. Nonhealing sacral stage III decubitus ulcer. Dementia. Bilateral lower extremity edema. DNR CCA. Palliative care. Plan: Significant worsening of sacral ulcer. Now also presents with an abdominal ulcer. Some eschar still noted on bilateral lower extremities. Debridement done as documented above. Will switch to Santyl to all ulcers covered with moistened gauze. Fibracol with Adaptic to the abdominal ulcer. Change daily. Continue SurePress for edema management. Elevate lower extremities when seated and in bed. Increased protein intake and supplements recommended. All her questions were answered and she was advised to call with any further questions or concerns. Follow-up in 3 weeks. This note was generated with [employer] dictation software. It may contain incorrect words, spelling, and punctuation that were not noted in checking the note before signing.
== END 2018-09-08 23:59 ==
LOC: WC 11:01
PROVIDERS: Visit Provider Internal Medicine
DX: L89.153 Pressure ulcer of sacral region, stage 3 (principal); R15.9 Full incontinence of feces; L97.812 Non-pressure chronic ulcer of other part of right lower leg with fat layer exposed; L97.822 Non-pressure chronic ulcer of other part of left lower leg with fat layer exposed; L98.492 Non-pressure chronic ulcer of skin of other sites with fat layer exposed; F03.90 Unspecified dementia, unspecified severity, without behavioral disturbance, psychotic disturbance, mood disturbance, and anxiety
CPT/HCPCS: 11042; 11045